=== PATIENT | male | born 1935 | race Caucasian/White ===

== ENCOUNTER → 2017-07-10 | Outpatient (CLI) | payer MEDICARE, OTHER ==
[~2017-07-10] MED LIST: ARICEPT ODT5 MG PO; ASPIRIN 81M81 MG/TA2 PO; ASPIRIN E.C. 8181 MG PO; AVODART 0.5MG0.5 MG PO; CELEBREX 200MG200 MG PO; CELEXA 20MG20 MG/TAB PO; DALIRESP500 MCG PO; FLOMAX 0.40.4 MG/CAP PO; GINKGO2 PO; GINKGO60 MG PO; IPRATROPIUM BROM3 M1 IH; LASIX 40MG TABL40 MG PO; LEVAQUIN 750MG750 M1 PO; MULTI VITAMINS1 TAB PO; NORCO 325 MG-51 TAB PO; NORVASC2.5 MG PO; OS-CAL 500 + D1 TAB PO; PREDNISONE20 MG PO; PRINIVIL20 MG PO; PROTONIX 40MG T40 MG PO; RESTORIL 1515 MG/CAP PO; RT ADVAIR 228 DISKUS IH; TOPROL XL 25MG25 MG PO; VANCOCIN HCL1 GM IV; VITAMIN C500 MG PO; ZESTRIL 20MG TA20 MG PO
[2017-07-10 17:52] LABS: HEMATOCRIT 42.3 % (42.0-52.0); HEMOGLOBIN 13.9 g/dl (13.5-18.0); MEAN CELL VOLUME 90 fl (80.0-100.0); MEAN CORPUSCULAR HEMOGLOBIN 30 pg (27.0-31.0); MEAN CORPUSCULAR HGB CONC 33 g/dl (33.0-37.0); MEAN PLATELET VOLUME 9.7 fl (7.4-10.4); PLATELET COUNT 258 K/mm3 (130-400); RED BLOOD COUNT 4.69 M/mm3 (4.20-5.60); WHITE BLOOD COUNT 17.5 K/mm3 (4.8-10.8)
[2017-07-10 18:39] LABS: ADD PATHOLOGY DIFF REVIEW NO
[2017-07-10 18:52] LABS: CALCIUM 9.2 mg/dL (8.4-10.2); CREATININE, serum 0.83 mg/dL (0.66-1.25); POTASSIUM 4.1 mmol/L (3.4-5.0)
[2017-07-10 21:21] LABS: BAND 27 % (0-10); BASOPHIL 1 % (0-2); EOSINOPHIL 1 % (0-4); LYMPHOCYTE 8 % (20.0-51.0); NEUTROPHILS 58 % (42.0-75.2); PLATELET ESTIMATE NORMAL (NORMAL); TOTAL CELLS COUNTED 100
== END ==
LOC: ZCOL.LAB 17:44
PROVIDERS: Nurse Practitioner Family
DX: J69.0 Pneumonitis due to inhalation of food and vomit (principal)

== ENCOUNTER → 2019-05-22 | Outpatient (CLI) | payer MEDICARE, OTHER | LOC: COL.RAD 12:30 | DX: R13.10 Dysphagia, unspecified (principal) ==

== ENCOUNTER → 2020-08-17 | Outpatient (CLI) | payer MEDICARE, OTHER | LOC: COL.RAD 15:00 | DX: M47.812 Spondylosis without myelopathy or radiculopathy, cervical region (principal); M48.02 Spinal stenosis, cervical region; M19.012 Primary osteoarthritis, left shoulder ==

== ENCOUNTER → 2020-11-19 | Outpatient (REF) ==
[~2020-11-19] MED LIST changes: +ARICEPT10 MG PO; +ATROVENT I0.2 MG/1 M IH; +FLAREX 5 ML5 M1 OP; +LASIX 20MG TABL20 MG PO; +MUCINEX 60600 MG/TA1 PO; +NAMENDA 10MG TA10 MG PO; +OMNICEF 300MG300 MG PO; +PULMICORT0.5 MG/2 M IH; +SINGULAIR 110 MG/TAB PO; +SYSTANE 0.3-0.1 EACH OP
[2020-11-19 20:50] LABS: HEMOGLOBIN 11.8 g/dl (13.5-18.0); MEAN CELL VOLUME 88 fl (80.0-100.0); MEAN CORPUSCULAR HEMOGLOBIN 29 pg (27.0-31.0); MEAN CORPUSCULAR HGB CONC 33 g/dl (33.0-37.0); MEAN PLATELET VOLUME 9.9 fl (7.4-10.4); PLATELET COUNT 243 K/mm3 (130-400); RED BLOOD COUNT 4.06 M/mm3 (4.20-5.60); REDCELL DISTRIBUTION WIDTH-CV 14.3 % (11.5-14.5)
[2020-11-19 20:55] LABS: HEMATOCRIT 35.7 % (42.0-52.0)
[2020-11-19 21:04] LABS: ALBUMIN 3.1 gm/dL (3.5-5.0); BILIRUBIN,TOTAL 0.7 mg/dL (0.0-1.0); CALCIUM 8.8 mg/dL (8.4-10.2); CREATININE, serum 0.75 (0.66-1.25); URIC ACID 5.4 mg/dL (3.5-8.5)
[2020-11-19 21:33] LABS: BAND 2 % (0-10); ERYTHROCYTE SEDIMENTATION RATE 18 mm/hr (0-30); LYMPHOCYTE 7 % (20.0-51.0); NEUTROPHILS 80 % (42.0-75.2); PLATELET ESTIMATE NORMAL (NORMAL)
== END ==
LOC: ZCOL.LAB 20:44
PROVIDERS: Internal Medicine
DX: I25.10 Atherosclerotic heart disease of native coronary artery without angina pectoris (principal); I67.9 Cerebrovascular disease, unspecified; I62.03 Nontraumatic chronic subdural hemorrhage

== ENCOUNTER → 2021-11-10 | Outpatient (CLI) | payer MEDICARE, OTHER | LOC: COL.RAD 09:43 | DX: J90 Pleural effusion, not elsewhere classified (principal); J98.4 Other disorders of lung; R91.8 Other nonspecific abnormal finding of lung field ==